=== PATIENT | female | born 1950 | race Caucasian/White ===

== ENCOUNTER → 2018-02-02 09:56 | Outpatient (CLI) | payer MEDICARE, OTHER, SELFPAY ==
--- NOTE | 2018-02-02 | DI.RAD.S_ITS ---
This blank DEXA report has been sent in error by the PACS system. The correct and complete report will be forthcoming in 1-2 days. Thank you for your patience and understanding. Dictated by: Andrew Frances M.D. on 02/02/2018 at 10:48 Approved by: Andrew Frances M.D. on 02/02/2018 at 10:48
== END ==
PROVIDERS: Family Provider Internal Medicine; PCP Internal Medicine; Visit Provider Internal Medicine
DX: Z13.820 Encounter for screening for osteoporosis (principal); Z78.0 Asymptomatic menopausal state
CPT/HCPCS: 77080

== ENCOUNTER → 2018-12-31 11:06 | Outpatient (CLI) | payer MEDICARE, OTHER, SELFPAY ==
--- NOTE | 2018-12-31 | DI.RAD.S_ITS ---
PROCEDURE: XR CHEST 2V INDICATIONS: Essential hypertension TECHNIQUE: 2 views of the chest were acquired. COMPARISON: None. FINDINGS: Surgical changes and devices: None. Lungs and pleura: Lungs are clear. No pleural effusions or pneumothorax. Mediastinum: Mediastinal contours are normal. Heart size is normal. Bones and chest wall: No suspicious bony abnormalities. Soft tissues appear unremarkable. IMPRESSION: Normal for age, source of current dry cough symptoms is not seen. Dictated by: Martinez Abdullahi M.D. on 12/31/2018 at 13:42 Approved by: Martinez Abdullahi M.D. on 12/31/2018 at 13:42
== END ==
PROVIDERS: Family Provider Internal Medicine; PCP Internal Medicine; Visit Provider Internal Medicine
DX: I10 Essential (primary) hypertension (principal)
CPT/HCPCS: 71046

== ENCOUNTER → 2019-04-17 15:10 | Outpatient (CLI) | payer MEDICARE, OTHER, SELFPAY ==
[2019-04-20 20:20] LABS: Aldosterone/Renin Activity Rat 0.6 Ratio (0.9-28.9); Plama Renin, LC/MS/MS 5.21 ng/mL/h (0.25-5.82)
== END ==
PROVIDERS: Family Provider Internal Medicine; PCP Internal Medicine; Visit Provider Internal Medicine
DX: I10 Essential (primary) hypertension (principal); E87.6 Hypokalemia
CPT/HCPCS: 36415; 82088; 83735; 84244

== ENCOUNTER → 2019-06-05 15:46 | Outpatient (CLI) | payer MEDICARE, OTHER, SELFPAY ==
[2019-06-05 17:19] LABS: BUN Creatinine Ratio 26.7 (6-22); Blood Urea Nitrogen 24 mg/dL (7-17); Calcium 9.1 mg/dL (8.4-10.2); Carbon Dioxide 27 mmol/L (22-32); Chloride 101 mmol/L (98-107); Estimated Glomerular Filt Rate > 60.0 mL/min (>60); Glucose 87 mg/dL (80-110); HEMOLYSIS < 15 (0-50); Potassium 4.1 mmol/L (3.4-5.1); Sodium 138 mmol/L (137-145)
== END ==
PROVIDERS: PCP Internal Medicine; Visit Provider Internal Medicine
DX: I10 Essential (primary) hypertension (principal)
CPT/HCPCS: 36415; 80048

== ENCOUNTER → 2019-06-20 10:53 | Outpatient (CLI) | payer MEDICARE, OTHER, SELFPAY ==
[2019-06-20 12:27] LABS: HEMOLYSIS < 15 (0-50); Potassium 4.9 mmol/L (3.4-5.1)
== END ==
PROVIDERS: PCP Internal Medicine; Referring Provider Internal Medicine; Visit Provider Internal Medicine
DX: E87.6 Hypokalemia (principal)
CPT/HCPCS: 36415; 84132

== ENCOUNTER → 2020-02-27 06:56 | Outpatient (CLI) | payer MEDICARE, OTHER, SELFPAY ==
[2020-02-27 09:30] LABS: Alanine Aminotransferase 17 IU/L (<35); Albumin Globulin Ratio 1.4 (1.0-2.8); Alkaline Phosphatase 48 U/L (38-126); Aspartate Aminotransferase 31 IU/L (14-36); BUN Creatinine Ratio 22.1 (6-22); Bilirubin Total 0.5 mg/dL (0.2-1.3); Blood Urea Nitrogen 19 mg/dL (7-17); Calcium 9.1 mg/dL (8.4-10.2); Carbon Dioxide 34 mmol/L (22-32); Chloride 102 mmol/L (98-107); Cholesterol 135 mg/dL (140-199); Estimated Glomerular Filt Rate > 60.0 mL/min (>60); Globulin 2.8 g/dL (1.7-4.1); Glucose 95 mg/dL (80-110); HDL Cholesterol 46 mg/dL (40-60); HEMOLYSIS < 15 (0-50); LDL Cholesterol Calculated 73 mg/dL (<100); Potassium 4.4 mmol/L (3.4-5.1); Sodium 137 mmol/L (137-145); Total Protein 6.8 g/dL (6.3-8.2); Triglycerides 82 mg/dL (35-150)
== END ==
PROVIDERS: PCP Internal Medicine; Referring Provider Internal Medicine; Visit Provider Internal Medicine
DX: F32.9 Major depressive disorder, single episode, unspecified (principal); I10 Essential (primary) hypertension; R73.01 Impaired fasting glucose; E78.2 Mixed hyperlipidemia
CPT/HCPCS: 36415; 80053; 80061

== ENCOUNTER → 2023-10-13 13:49 | Outpatient (CLI) | payer MEDICARE, OTHER, SELFPAY ==
--- NOTE | 2023-10-13 | DI.CT.S_ITS ---
PROCEDURE: CT ANKLE RIGHT WITHOUT CON INDICATIONS: Pain in right ankle and joints of right foot TECHNIQUE: Noncontrast 1-1.5 mm axial sections acquired from above the tibiotalar joint to the bottom of the calcaneus, with coronal and sagittal reformats. COMPARISON: None. FINDINGS: Image quality: Excellent. Bones: Left ankle and foot alignment is anatomic. No acute fracture or dislocation. [id number] osteoarthritic changes are noted throughout left ankle and foot more notably involving tibiotalar joint, subtalar joint, and 1st MTP joint. No metatarsal stress fractures. No suspicious intraosseous lesion. Soft tissues: There is no soft tissue mass or drainable fluid collection. Small tibiotalar joint effusion is seen, no calcified intra-articular loose bodies. There is no full-thickness extensor, flexor, or peroneus tendon rupture. Thickened Achilles tendon is seen extending to its posterior calcaneal insertion. No full-thickness Achilles tendon rupture. The visualized portion of plantar fascia is within normal limits. IMPRESSION: 1. [id number] right foot and ankle joint osteoarthritis as above. No fracture or dislocation. No metatarsal stress fractures. No suspicious intraosseous lesions. 2. Suggestion of [id number] Achilles tendinosis. No Achilles tendon rupture. Rest of the ankle tendons are grossly intact. 3. No soft tissue mass or drainable fluid collection. No calcified intra-articular loose bodies. Dictated by: Andrew Frances M.D. on 10/13/2023 at 16:47 Approved by: Andrew Frances M.D. on 10/13/2023 at 16:53
== END ==
PROVIDERS: PCP Student in an Organized Health Care Education/Training Program; Referring Provider Family Medicine; Visit Provider Family Medicine
DX: M19.071 Primary osteoarthritis, right ankle and foot (principal); M25.571 Pain in right ankle and joints of right foot
CPT/HCPCS: 73700